=== PATIENT | male | born 2000 | race Caucasian/White ===

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

== ENCOUNTER 2021-01-09 20:06 | Observation (INO) | payer OTHER, MEDICAID ==
[~2021-01-09] VITALS: Ht 182.9 cm; Wt 68.0 kg
[2021-01-09 20:40] LABS: HEMOGLOBIN 15.6 gm/dl (14.0-17.5); RED BLOOD COUNT 5.18 M/UL (4.20-5.50); WHITE BLOOD COUNT 8.9 K/UL (4.5-11.0)
[2021-01-09 20:52] LABS: BUN/CREATININE RATIO 13 (0-10)
[2021-01-10 08:23] LABS: HEMOGLOBIN 14.3 gm/dl (14.0-17.5); RED BLOOD COUNT 4.86 M/UL (4.20-5.50)
[2021-01-10 08:25] LABS: WHITE BLOOD COUNT 5.8 K/UL (4.5-11.0)
== END 2021-01-10 14:20 | disposition home or self-care (01) ==
LOC: ER1 20:06 → CDU 22:08 → MED SURG 4 22:08
PROVIDERS: Physician Assistant; ADMIT Surgery
DX: R10.31 Right lower quadrant pain (principal); R10.2 Pelvic and perineal pain; Z87.891 Personal history of nicotine dependence; Z20.822 Contact with and (suspected) exposure to COVID-19
CPT/HCPCS: 36415; 80053; 81001; 85025; 85027; 99285; G0378; J3480; Q9967; U0002